=== PATIENT | female | born 1995 | race Two or more races ===

== ENCOUNTER 2017-12-22 11:40 | Emergency (ER) | payer MEDICAID ==
--- NOTE | 2017-12-22 13:26 | Diagnostic Imaging Report ---
Head CT without intravenous contrast Indication: Headache and nausea Comparison: None Technique: Axial images were obtained from the vertex to the skull base without IV contrast. Coronal reconstructions were made. Total DLP: 604, [id number] FINDINGS: Images of the brain obtained without contrast demonstrate no acute hemorrhage. No mass lesions identified. The ventricles and basal cisterns are patent. The bangura-white matter differentiation is preserved. There is no mass effect or midline shift. No skull fractures identified. No soft tissue swelling. The paranasal sinuses are clear. IMPRESSION: No acute intracranial abnormality.
== END 2017-12-22 13:49 | disposition home or self-care (01) ==
LOC: ER 11:40
DX: R51 Headache (principal)
CPT/HCPCS: 70450-TC; 81025-TC; 96374; 96375; J1885; J2930; Z7502